=== PATIENT | female | born 1990 | race Caucasian/White ===

== ENCOUNTER 2024-11-21 14:30 | Outpatient (CLI) | payer OTHER, SELFPAY ==
--- NOTE | 2024-11-23 08:49 | P.LACCB_ITS ---
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) Gestational Age: 40 Gestational Weight For Age: AGA Weight: 4.196 kg Baby's Information Baby's Age at Visit: 17 days Baby's Provider or Clinic: [facility] Jaundice: No Past Experience Past Experience: Yes (pumped and bottled with first child fol lowing NICU stay) Current Frequency of Day Feedings: all the time Frequency of Night Feedings: 6 hr stretch, then 4hr stretch but wakes for snacks Both Breasts: Yes Suck: gets sleepy after 10 minutes Latch: was painful, getting better Length of Time: 15 min 1st side, then 10-15 min on 2nd side Goals: at least 1 year Pumping Pumping: Yes Quantity Pumped: a few times for bottles; Supplementing EBM Supplement: Yes (3 times so far; 1.5-2.5 oz) Formula Supplement: No Baby Elimination Number of Wet Diapers a Day: ea feeding Number of BM a Day: 8 or more a day; yellow, seedy Breast/Nipple Condition Breast Information: Breasts are symmetrical with rounded lower quadrants, intramammary distance is less than 1.5 inches. No erythema. Nipples are supple, everted prior to feeding. Ivett has resolving mastitis on her right breast; pain is resolved, erythema is gone. She never needed antibiotics for resolution. She does notice the supply on her right side seems less than on her left following this occurence. Breast Shape: Round Engorgement: No Maternal Nipple Condition - Left: Common Nipple Maternal Nipple Condition - Right: Common Nipple Sore Nipples: Yes (getting better) Interventions for Sore Nipples: [place]oh/Nipple Cream Baby Assessment Skin: Normal Tongue/frenulum: Restricted mid-range Palate: Average Lips: Relaxed Jaw Alignment: Symmetrical Mucosa: [place], moist Onsite Observation Pre-Feed weight: 4.236 kg (up 4 oz from last weight on 11/17 for average of 1oz/day) Post-Feed weight: 4.28 kg Milk Transferred (mL): 44 Position: Cradle and Cross cradle Attachment/latch-on achieved: Easily Suck pattern: Suck burst and normal rest Swallow: Audible, consistent Behavior following feed: Relaxed, sleepy and Alert, fussy (unless back on the breast) Assessments/Interventions Assessments/Interventions: observation: Baby latched well to mom's RIGHT breast, nursed strongly for 15 minutes, some gulping noted. Near last 5 minutes of feeding, baby got sleepy and slid downthe breast and more onto the end of mom's nipple. She noticed slight more pinchy sensation with this; her nipple was creased as he came off the breast. Milk transferred: 16 ml Baby latched to mom's LEFT breast; used asymmetric latch technique and more of a breast sandwich to get a deeper latch; mom reports more comfort with this latch. Baby suckled on and off for about 10 minutes; Milk transferred 26ml; mom does feel her left breast is making more milk than her right following the mastitis Babe then relatched to mom's RIGHT breast with same technique and some breast compression to stimulate suckling. Babe would not engage in more feeding, but fussy coming away from the breast. Milk transferred: 2 ml more Total milk transferred: 44ml Discussed calorie needs based on his age/weight: expect 23-25 oz/day which would be 16 feedings/day if all feedings were like this. When he takes a bottle, he will take 2-2.5 oz of expressed milk Mom is using the [place] sometimes when she switches breasts. Suggest she give baby this milk to help meet his caloric needs, and possibly e xtend time between feedings a bit Information/education on tongue ties shared: Especially role of tongue in feeding; I'm questioning if baby is fatiguing at the breast and this is compromising his milk intake in addition to mom recovering from mastitis Education provided: Early feeding cues to maximize timing of latching, Asymmetric latch technique for wide/deep latch to increase milk, Transfer for baby and increase comfort for mom, Supply/demand nature of milk supply, Sore nipple treatment options, Alternative feeding methods (SNS, cup, finger feeding, bottling) (paced bottle feeding if needs supplement), Pumping for milk management and Milk collection, storage Education provided: Early feeding cues to maximize timing of latching, Asymmetric latch technique for wide/deep latch to increase milk and Transfer for baby and increase comfort for mom Handouts Provided: Suck training information Resources for tongue tie evaluation Feeding Plan: Feed every 2-3 hours, suggest only 3-4 hours at night for him to get his calorie needs and to keep her breast comfortable given the recent mastitis Use breast compression after 10 minutes of feeding or when he slows down on swallowing to assist him getting larger feedings and help decrease the all the time feeding Suck training exercises to help strengthen his tongue Tongue tie release providers shared if decide to pursue this avenue pending on how his feedings change (or not) after initiating the suck training exercises TABBY tongue assessment tool reviewed as to what criteria are being evaluated Follow-Up Suggested follow up: Appointment in 1 week Time Spent Time spent with patient (min): 75 (face to face with patient and )
== END 2024-11-21 14:31 | disposition home or self-care (01) ==
PROVIDERS: Visit Provider Midwife
DX: Z39.1 Encounter for care and examination of lactating mother (principal)
CPT/HCPCS: G0463